=== PATIENT | female | born 1955 | race Asian ===

== ENCOUNTER 2023-10-08 13:09 | Emergency (ER) | payer OTHER ==
[~2023-10-08] VITALS: Ht 157.5 cm; Wt 81.6 kg
[2023-10-08 13:15] VITALS: BP_SYST 142; PULSE 97; RESP 22; TEMP 98.3; O2SAT 96
[2023-10-08] MEDS ORDERED: AUG875 PO (13:41)
[2023-10-08] MEDS: DIPHTH,PERTUSS(ACELL),TET VAC 0.5 ML VIAL (Tdap) I.M. ONE (14:06)
[2023-10-08 14:09] VITALS: BP_SYST 142; PULSE 97; RESP 22; TEMP 98.3; O2SAT 96
== END 2023-10-08 14:13 | disposition home or self-care (01) ==
LOC: SED 13:09
DX: S61.431A Puncture wound without foreign body of right hand, initial encounter (principal); W54.0XXA Bitten by dog, initial encounter; Y93.89 Activity, other specified; Y92.89 Other specified places as the place of occurrence of the external cause; Y99.8 Other external cause status
CPT/HCPCS: 90715; 99283